=== PATIENT | female | born 2000 | race Caucasian/White ===

== ENCOUNTER 2018-10-08 17:57 | Emergency (ER) | payer OTHER | END 2018-10-08 19:29 | disposition home or self-care (01) | LOC: JERFT 17:57 ==

== ENCOUNTER 2019-02-28 12:31 | Emergency (ER) | payer OTHER ==
[2019-02-28 12:37] VITALS: BP 120/71; PULSE 110; TEMP 98.8; BMI 19.8
--- NOTE | 2019-02-28 13:46 | PDOC ---
History of Present Illness - General History Source: Patient - History of Present Illness Timing/Duration: reports: constant Quality: reports: severe <Pamela GonzalezDaniel - Last Filed: 02/28/19 16:00> <Jesica Valle - Last Filed: 03/01/19 17:26> - General Chief Complaint: Pain Stated Complaint: ABD/PAIN Time Seen by Provider: 02/28/19 13:23 Past History - Past Medical History COPD: No - Psycho Social/Smoking Cessation Hx Smoking Status: No Smoking History: Never smoked Number of Cigarettes Smoked Daily: 0 Hx Alcohol Use: No Drug/Substance Use Hx: No <Nito Gonzalez - Last Filed: 02/28/19 16:00> <Jesica Valle - Last Filed: 03/01/19 17:26> - Past Medical History Allergies/Adverse Reactions: Allergies Allergy/AdvReac Type Severity Reaction Status Date / Time No Known Allergies Allergy Verified 02/28/19 12:35 Home Medications: Ambulatory Orders Sulfamethoxazole/Trimethoprim [Bactrim Ds Tablet] 1 each PO BID #14 tablet 02/28 Sulfamethoxazole/Trimethoprim [Bactrim Ds Tablet] 1 each PO BID #14 tablet 02/28 Review of Systems - Review of Systems Constitutional: No: Chills, Fever ABD/GI: Yes: Nausea. No: Vomiting : No: Dysuria, Hematuria <Nito Gonzalez - Last Filed: 02/28/19 16:00> *Physical Exam - Vital Signs Last Vital Signs Temp Pulse Resp BP Pulse Ox 98.8 F 110 H 18 120/71 99 02/28/19 12:33 02/28/19 12:33 02/28/19 12:33 02/28/19 12:33 02/28/19 12:33 - Physical Exam General Appearance: Yes: Appropriately Dressed. No: Apparent Distress HEENT: positive: Normal Voice Neck: positive: Supple Respiratory/Chest: negative: Respiratory Distress Gastrointestinal/Abdominal: positive: Tender (minimal ttp to left suprapubic), Soft Musculoskeletal: negative: CVA Tenderness Integumentary: positive: Dry, Warm Neurologic: positive: Fully Oriented, Alert, Normal Mood/Affect <Nito Gonzalez - Last Filed: 02/28/19 16:00> - Vital Signs Last Vital Signs Temp Pulse Resp BP Pulse Ox 98.8 F 110 H 18 120/71 99 02/28/19 12:33 02/28/19 12:33 02/28/19 12:33 02/28/19 12:33 02/28/19 12:33 <Jesica Valle - Last Filed: 03/01/19 17:26> ED Treatment Course - Medications Given in the ED: ED Medications Discontinued Medications Generic Name Dose Route Start Last Admin Trade Name Chadwick PRN Reason Stop Dose Admin Ceftriaxone Sodium 1 gm/ 100 mls @ 200 mls/hr 02/28/19 14:20 02/28/19 15:00 Dextrose IVPB 02/28/19 14:49 200 mls/hr ONCE ONE Administration Ibuprofen 800 mg 02/28/19 14:37 02/28/19 15:00 Motrin - PO 02/28/19 14:38 800 mg ONCE ONE Administration <ValleAinsleyJesicaconsuelo Carlton - Last Filed: 03/01/19 17:26> Medical Decision Making - Medical Decision Making 02/28/19 13:34 18 F, denies any pmhx, here severe L suprapubic pain. Patient states she has had pain to site intermittently over the past 2-3 months but that for the past several days pain has gotten worse and now constant. Denies dysuria, freq, hematuria, vaginal discharge, odor, itching, change in bowel movements, nausea, vomiting, fever or chills. No history of ovarian cyst or fibroids. Sexually active with long time partner only with no history of STDs per pt. States today is the first time she is seeking medical evaluation for pain as pain is now worse see exam L pelvic pain Etiology unclear given duration Given acute worsening of sxs, torsion considered vs stone, less likely PID, ? UTI/pyelo -ua/cx -upreg -US 02/28/19 14:35 UTI on UA. Patient now reports nausea intermittently for 3 days and left lower back pain. Will give dose of IV ceftriaxone for suspected pyelo at this time, no prior sensitivities on records here. Rpt HR 92 and no vomiting or fever to warrant inpt tx. Patient currently in ultrasound but torsion now less likely given UA results 02/28/19 15:14 Ultrasound with possible 5.6 hemorrhagic cyst and also a simple 2cm ovarian cyst w/ no evidence of torsion. Pt informed of results and will follow-up with her BREAKDOWN PERSON 02/28/19 16:00 Pt signed out to RIGOBERTO Colon. Bactrim already sent to pharmacy <Pamela GonzalezYoniHenrietta - Last Filed: 02/28/19 16:00> - Medical Decision Making The patient was seen and evaluated in conjunction with midlevel provider under my direct supervision, ancillary studies were reviewed. I agree with the plan as outlined RIGOBERTO Gonzalez. HPI, workup/dispo as outlined. VS reviewed, tachy likely from pain. no fever or systemic sx. sono with hemorrhagic rn neurosurgical/simple cyst, no torsion, could also be causing her pelvic pain. treating UTI, bactrim rx rpt VS after pain control. anticipate discharge, pcp/[employer]olf [employer] we[employer] followup, return precautions 03/01/19 17:25 03/01/19 17:25 03/01/19 17:26 03/01/19 17:26 <Jesica Valle - Last Filed: 03/01/19 17:26> Discharge - Discharge Information Problems reviewed: Yes <LisaPamelaYoniHenrietta - Last Filed: 02/28/19 16:00> <Jesica Valle - Last Filed: 03/01/19 17:26> - Discharge Information Clinical Impression/Diagnosis: Left flank pain UTI (urinary tract infection) Qualifiers: Urinary tract infection type: site unspecified Hematuria presence: without hematuria Qualified Code(s): N39.0 - Urinary tract infection, site not specified Ovarian cyst Qualifiers: Laterality: left Qualified Code(s): N83.202 - Unspecified ovarian cyst, left side Condition: Good Disposition: HOME - Additional Discharge Information Prescriptions: Sulfamethoxazole/Trimethoprim [Bactrim Ds Tablet] 1 each PO BID #14 tablet Sulfamethoxazole/Trimethoprim [Bactrim Ds Tablet] 1 each PO BID #14 tablet - Follow up/Referral Referrals: [place] MD [Primary Care Provider] - - Patient Discharge Instructions Patient Printed Discharge Instructions: Ovarian Cyst, Kidney Infection Additional Instructions: It appears that you might have an early kidney infection from your urinary tract infection. Please take antibiotics as prescribed. You can take Motrin or Tylenol for pain. If symptoms worsen, return to ER immediately Ultrasound also showed a possible hemorrhagic cyst on the left side and also a simple left ovarian cyst. Ovarian cyst are common in women of childbearing years and usually resolve on their own but please follow-up with your BREAKDOWN PERSON to make her aware - Post Discharge Activity
[2019-02-28 14:02] LABS: EPI CELLS 13.2 /HPF (0-5/HPF); HYALINE CASTS 29 /lpf (0-8); PH,URINE 5.5 (5.0-8.0); URINE APPEARANCE CLOUDY; URINE BACTERIA >9000 /hpf (NEGATIVE); URINE BILIRUBIN NEGATIVE (NEGATIVE); URINE COLOR DK YELLOW; URINE GLUCOSE (UA) NEGATIVE (NEGATIVE); URINE KETONE 2+ (NEGATIVE); URINE LEUK ESTERASE 1+ (NEGATIVE); URINE NITRITE POSITIVE (NEGATIVE); URINE PROTEIN NEGATIVE (NEGATIVE); URINE WBC 39 /hpf (0-5)
[2019-02-28] MEDS ORDERED: CEFTRIAXONE 1 GM in DEXTROSE 5%-WATER - 100 ML IVPB ONE (14:20)
[2019-02-28 14:35] LABS: URINE RBC 17 /hpf (0-4)
[2019-02-28] MEDS ORDERED: IBUPROFEN 400 MG TABLET (FP) PO ONE (14:37)
[2019-02-28] MEDS ORDERED: cefTRIAXone SODIUM 1 GM VIAL ONE (15:25)
[2019-02-28] MEDS ORDERED: IBUPROFEN 600 MG TABLET (FP) PO ONE (15:25)
== END 2019-02-28 16:27 | disposition home or self-care (01) ==
LOC: JER 12:31
DX: N39.0 Urinary tract infection, site not specified (principal); N83.202 Unspecified ovarian cyst, left side
CPT/HCPCS: 76830-TC; 76856-TC; 81003; 84703; 96365; 99281-25